=== PATIENT | female | born 1980 ===

== ENCOUNTER → 2017-07-10 | Outpatient (CLI) | payer BC ==
--- NOTE | 2017-07-10 16:18 | MR ---
EXAMINATION TYPE: MR brain/cspine wo/w DATE OF EXAM: 07/10/2017 COMPARISON: 10/08/2016 HISTORY: dis of spinal cord , migraine , MS CONTRAST: Performed utilizing 6.5 mL intravenous Gadavist gadolinium contrast. TECHNIQUE: Multiplanar, multisequence imaging of the brain is performed on a 3.0 April magnet. Demye linating disease protocol with additional Sagittal Flair sequence is performed. Study is performed wi thin 24 hours of arrival to the hospital. FINDINGS: T2 White Matter Lesions Present : No Some minimal periventricular white matter changes present more typical for white matter ischemic harrison ge. Enhancing Lesion(s) Present: No Change from Prior: Stable Diffusion-weighted imaging is performed. No abnormal hyperintensity is present to suggest an acute i ntracranial infarct or acute ischemic change. Ventricles and sulci are appropriate for the patient age. Craniovertebral junction is normal. Pituitary appears unremarkable. Corpus callosum appears unremarka ble. No abnormal enhancement is present on post contrast images. . The visualized sinuses are clear. Visu alized orbits are unremarkable. IMPRESSION: 1. No suspicious changes to suggest multiple sclerosis within the brain at this time. EXAMINATION TYPE: MR brain/cspine wo/w DATE OF EXAM: 07/10/2017 COMPARISON: 10/08/2016 HISTORY: dis of spinal cord , migraine , MS CONTRAST: Performed utilizing 6.5 mL intravenous Gadavist gadolinium contrast. TECHNIQUE: Multiplanar multiecho imaging on a 3.0 April magnet is performed through the cervical spin e. FINDINGS: The craniovertebral junction is normal. Vertebral body alignment is normal. C7-T1: No focal disc herniation or significant disc bulge is evident. No spinal canal stenosis or n eural foraminal stenosis is present. C6-7: No focal disc herniation or significant disc bulge is evident. No spinal canal stenosis or desmond ral foraminal stenosis is present. C5-6: No focal disc herniation or significant disc bulge is evident. No spinal canal stenosis or desmond ral foraminal stenosis is present. C4-5: Mild disc bulging is anterior thecal sac contact. No spinal canal stenosis or neural foraminal stenosis is present. C3-4: Central disc subligamentous herniation is present. This has mild anterior thecal sac compressio n. No cord contact is evident. No spinal canal stenosis or neural foraminal stenosis is present. C2-3: No focal disc herniation or significant disc bulge is evident. No spinal canal stenosis or desmond ral foraminal stenosis is present. There is increased signal diffusely within the posterior and left lateral spinal cord posterior to th e C2 level. This area measures approximately 0.7 cm AP by 1.9 cm in craniocaudal dimension. This was present previously but appears more extensive on the current examination. Previous linear signal post erior to the C2 level is not identified on the current exam. Remainder the spinal cord appears to hav e normal signal. No cord expansion is evident. No abnormal enhancement is evident. Previous enhanceme nt is not identified. IMPRESSIONS: 1. Proximal cervical spinal cord plaque may be present discussed above. Previous enhancement within t his region is not present. This area increased in size from prior study. Cord expansion however is no t evident. 2. Subligamentous disc herniation C3-C4.
== END | disposition home or self-care (01) ==
LOC: RADMRIMAIN 10:50
PROVIDERS: ATTEND Psychiatry & Neurology Neurology
DX: M50.21 Other cervical disc displacement, high cervical region (principal); G35 Multiple sclerosis
CPT/HCPCS: 70553; 72156; A9581

== ENCOUNTER → 2018-05-17 | Outpatient (CLI) | payer MEDICARE ==
--- NOTE | 2018-05-17 21:29 | MR ---
EXAMINATION TYPE: MR brain/cspine wo/w DATE OF EXAM: 05/17/2018 COMPARISON: MRI brain and cervical spine July 10, 2017. HISTORY: G 95.9, G43.909, and G 35 all per order. Multiple sclerosis per patient with dizziness and b ilateral extremity numbness and weakness per patient. TECHNIQUE: Multiplanar, multisequence images of the cervical spine, brain, and brainstem are all performed witho ut and with IV contrast, utilizing 6 mL intravenous Gadavist gadolinium contrast is administered intr avenously. Demyelinating disease protocol with additional Sagittal Flair sequence performed of the b rain and brainstem and PD sagittal sequence of cervical spine also acquired. FINDINGS: BRAIN: T2 Lesions Present : Yes Approximate Number of Lesions: 2 distinct lesions current study Locations Identified : Scattered Size of Reference Lesion(s): 1. 0.3 x 0.2 x 0.3 cm on axial image 20 and sagittal image 7 posterior left frontal lesion in retrosp ect likely stable 2 2 mm left parietal periventricular lesion axial image 16 and sagittal image 11 is less prominent ve rsus prior Enhancing Lesion(s) Present: No T1 Hypointense Lesion(s) Present: No Change from Prior: Likely stable in retrospect Diffusion weighted images demonstrate no evidence of a recent infarct or other diffusion abnormality. There is no worrisome extra-axial fluid collection. The ventricular system and cisternal spaces ar e normal in size and appearance. The brain volume is age appropriate. Midline structures demonstrate normal morphology. The craniocervical junction appears within normal limits. Post contrast images demonstrate no abnormal enhancement. The dural venous sinuses appear pa tent. The visualized sinuses are clear and the globes are intact. IMPRESSION: Minimal nonspecific white matter changes. No enhancing lesions are evident. C-SPINE: FINDINGS: Coronal images demonstrate dextroconvex scoliotic curvature centered in the upper thoracic spine. Sagittal images of the cervical spine show the craniocervical junction to remain within normal limits. There is redemonstration of vague area of abnormal signal posterior inferior C2 level this i s less prominent from prior exam on sagittal image 7 extending to mid C3 level sagittal image 6. No new areas of abnormal signal are clearly identified. No suspicious enhancement is present currently. The vertebral body and intravertebral disk heights are normal. No new large posterior disc herniatio ns are seen on sagittal images. Small hemangioma anterior superior C3 endplate is redemonstrated. Axial images show the C2-C3 disc space level to remain within normal limits. Axial images at C3-C4 level demonstrates central disc protrusion effacing anterior thecal sac, bilate ral neural foramina are patent. No significant change from prior. Axial images C4-C5 level redemonstrate smaller central disc protrusion mildly effacing the anterior t hecal sac there axial image 27, bilateral neural foramina are patent. No significant change from prio r. Axial images at C5-C6, C6-C7, C7-T1 levels remain within normal limits. Vague area of increased signal left posterior superior to mid C3 level and spinal cord is confirmed o n axial image 41. IMPRESSION: Persistent demyelinating plaque centered posterior C2-C3 level. It is less prominent in s ize versus prior exam. No new demyelinating plaques or suspicious enhancement is noted.
== END | disposition home or self-care (01) ==
LOC: RADMRIMAIN 13:01
PROVIDERS: ATTEND Psychiatry & Neurology Neurology
DX: R90.82 White matter disease, unspecified (principal); M53.82 Other specified dorsopathies, cervical region; G35 Multiple sclerosis; G43.909 Migraine, unspecified, not intractable, without status migrainosus
CPT/HCPCS: 70553; 72156; A9581

== ENCOUNTER → 2018-05-24 | Outpatient (CLI) | payer MEDICARE ==
--- NOTE | 2018-05-26 02:56 | MR ---
MR scan thoracic spine. History multiple sclerosis. Comparison 10/31/2016. TECHNIQUE: Multiplanar multiecho imaging of the thoracic spine was performed with and without IV contrast. The c ontrast was gadolinium 6 mm. FINDINGS: Thoracic vertebra have fairly normal spacing and alignment. There is slight thoracic dextroscoliosis. There is no compression fracture. There is no thoracic paraspinal mass. The contrast images show no pathologic enhancement. I see no thoracic disc herniation. There is no evidence of focal bony destruc tive process. There is very slight increased signal in the thoracic spinal cord at the T5 level on the T2 images. T he margins are indistinct. The remainder of the spinal cord shows normal signal pattern. IMPRESSION: 10 mm segment of thoracic cord at T5 level shows slight increased signal on T2. This is a change comp ared to old exam and is mildly suspicious for demyelinating disease.
== END ==
LOC: RADMRIMAIN 13:01
PROVIDERS: ATTEND Psychiatry & Neurology Neurology
DX: R93.8 Abnormal findings on diagnostic imaging of other specified body structures (principal); G35 Multiple sclerosis
CPT/HCPCS: 72157; A9581

== ENCOUNTER → 2019-05-02 | Outpatient (CLI) | payer MEDICARE ==
--- NOTE | 2019-05-02 21:24 | MR ---
EXAMINATION TYPE: MR thoracic spine wo/w con DATE OF EXAM: 05/02/2019 COMPARISON: Thoracic spine MRI dated 05/24/2018 HISTORY: Fatigue, MS follow up TECHNIQUE/CONTRAST: Standard multiplanar, multisequence MRI of the thoracic spine departmental protocol utilizing 6 mL in travenous Gadavist gadolinium contrast. FINDINGS: Again within the midthoracic spine at the level of approximately T6 there is a 1.3 cm abnormal plaque within the spinal cord that measures 1.3 cm, previously measuring 1.0 cm. This demonstrates no abnor mal enhancement. The thoracic spinal cord signal is otherwise unremarkable. Multilevel disc desiccation is seen without focal herniation, spinal canal stenosis, nor neural swapna inal narrowing. The thoracic bone marrow signal is within normal limits. No suspicious extra-axial fl uid collection is seen. Small Schmorl's node of the inferior thoracic vertebrae. No vertebral body he ight loss or malalignment. No abnormal enhancement throughout the thoracic spine nor thoracic spinal cord. There is adjacent atelectasis noted. IMPRESSION: Nonenhancing plaque is slightly increased in size from the prior of 05/24/2018 currently measuring 1.3 cm and previously measuring 1.0 cm. No new demyelinating plaques are seen. No new focal disc herniat ion, no abnormal enhancement of the thoracic spine or spinal cord, no new vertebral body height loss, and no malalignment of the thoracic spine.
--- NOTE | 2019-05-02 21:34 | MR ---
EXAMINATION TYPE: MR brain wo/w con DATE OF EXAM: 05/02/2019 COMPARISON: NONE HISTORY: Fatigue, MS follow up TECHNIQUE: Multiplanar, multisequence images of the brain and brainstem is performed without and with IV contras t, utilizing 6 mL intravenous Gadavist . FINDINGS: T2 Lesions Present : Yes Approximate Number of Lesions: 3 unchanged lesions Locations Identified : Deep white matter Size of Reference Lesion(s): 1. 0.3 x 0.2 x 0.3 cm on axial image 18 and in the left frontal lobe and subcortical distribution 2. Parietal periventricular 2 mm lesion axial image 17 New lesion in the left frontal lobe on sagittal image 15 measuring 1.0 x 0.2 cm. Enhancing Lesion(s) Present: No T1 Hypointense Lesion(s) Present: No Change from Prior: Solitary new lesion Diffusion weighted images demonstrate no evidence of a recent infarct or other diffusion abnormality. There is no extra-axial fluid collection. The ventricular system and cisternal spaces are normal i n size and appearance. The brain volume is age appropriate. Midline structures demonstrate normal morphology. The craniocervical junction appears within normal limits. Post contrast images demonstrate no abnormal enhancement. The dural venous sinuses appear pa tent. The visualized sinuses demonstrate mild mucosal thickening of the right maxillary sinus and sca nt mucosal thickening of the inferior ethmoid sinuses. Globes are symmetric. IMPRESSION: 1. Solitary new nonenhancing left frontal lobe white matter plaques and stable additional left cooling pan tender ior supratentorial lesions. No MR evidence of active demyelination. 2. No acute infarct, midline shift or mass effect. No abnormal intracranial enhancement.
== END ==
LOC: RADMRIMAIN 13:39
PROVIDERS: ATTEND Psychiatry & Neurology Neurology
DX: R90.89 Other abnormal findings on diagnostic imaging of central nervous system (principal); G95.89 Other specified diseases of spinal cord; G43.909 Migraine, unspecified, not intractable, without status migrainosus; R53.83 Other fatigue; G35 Multiple sclerosis
CPT/HCPCS: 70553; 72157; A9585

== ENCOUNTER → 2019-05-30 | Outpatient (CLI) | payer MEDICARE ==
--- NOTE | 2019-05-31 21:54 | MR ---
EXAMINATION TYPE: MR cervical spine wo/w con DATE OF EXAM: 05/30/2019 COMPARISON: Prior MR cervical spine 05/17/2018 HISTORY: MS TECHNIQUE: Multiplanar, multisequence images of the cervical spine were acquired utilizing 6 mL intravenous Gada vist gadolinium contrast. Diffusion weighted imaging was performed. There is no significant spinal stenosis or foraminal encroachment. 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 Increased signal within the C3 vertebral body likely represents hemangioma. Cervical s egments are intact. There is normal alignment. Cervical spinal cord is increased at the dorsal aspe ct of the cervical cord at the C2-3 level without enhancement. Craniovertebral junction relationship s are within normal limits. IMPRESSION: Mild cord signal changes are compatible with patient's history of multiple sclerosis. Stable findings .
== END | disposition home or self-care (01) ==
LOC: RADMRIMAIN 14:58
PROVIDERS: ATTEND Psychiatry & Neurology Neurology
DX: G43.909 Migraine, unspecified, not intractable, without status migrainosus (principal); G35 Multiple sclerosis; G95.9 Disease of spinal cord, unspecified; R53.83 Other fatigue
CPT/HCPCS: 72156; A9585

== ENCOUNTER → 2020-05-14 | Outpatient (CLI) | payer MEDICARE ==
--- NOTE | 2020-05-14 10:48 | MR ---
EXAMINATION TYPE: MR brain wo con DATE OF EXAM: 05/14/2020 10:32 AM COMPARISON: 1401 HISTORY: Known MS, Relapse of symptoms. Dizziness, memory lapse and forgetfulness. Multiplanar and multispin-echo imaging of the brain was performed . FINDINGS: T2 Lesions Present : Yes Approximate Number of Lesions: 3 unchanged lesions Locations Identified : Deep white matter Size of Reference Lesion(s): 1. 0.3 x 0.2 x 0.3 cm on axial image 18 and in the left frontal lobe seen previously has resolved. 2. Parietal periventricular 2 mm lesion remain stable. 3 new lesion identified left centrum semiovale periventricular location image 20 measuring 6.2 mm. Left frontal periventricular lesion as well as posterior right ventricular atrial lesion remain stabl e. Enhancing Lesion(s) Present: No T1 Hypointense Lesion(s) Present: No Change from Prior: Solitary new lesion The ventricles, basal cisterns and sulci overlying the cerebral convexities are within normal limits. There is no evidence for midline shift or mass effect. Acute intracranial hemorrhage or extra-axial collection is not evident. The brain parenchyma reveals no abnormal increased signal. No acute edema is identified. Mastoid air cells are well-aerated. Severe opacification right maxillary sinus, right ethmoid air ivone ls and right frontal sinus. IMPRESSION: 1. There is a new lesion identified within the left centrum semioval bilaterally measuring 6.2 mm. 2. Resolution of previously noted left parietal subcortical lesion.
== END | disposition home or self-care (01) ==
LOC: RADMRIMAIN 09:44
PROVIDERS: ATTEND Psychiatry & Neurology Neurology
DX: G93.89 Other specified disorders of brain (principal)
CPT/HCPCS: 70551

== ENCOUNTER → 2021-02-04 | Outpatient (CLI) | payer MEDICARE ==
--- NOTE | 2021-02-04 17:56 | MR ---
EXAMINATION TYPE: MR cspine/tspine wo/w con DATE OF EXAM: 02/04/2021 COMPARISON: 05/30/2019 and 05/02/2019 HISTORY: MS, unsteady gait, weakness. CONTRAST: Standard multiplanar, multisequence MRI departmental protocol utilizing 5.5 mL intravenous Gadavist g adolinium contrast. Cervical vertebra have normal alignment. Disc spaces are fairly normal. There is small posterior disc bulge at C3-4 and C4-5. There is no spinal stenosis. There is developmentally adequate spinal canal. Brainstem is intact. Cervical spinal cord has fairly normal signal pattern. There is no edema. Brain stem has normal signal pattern. At the T1-T2 level on the T2 images there is increased signal within the central spinal cord. There i s no evidence of a mass. There is also slight increased signal in the posterior cord at T6 level. Thi s T6 abnormality is seen only well on the axial images. There is no expansion. The contrast images sh ow no pathologic enhancement of the thoracic and cervical spine.. The thoracic vertebra show normal spacing. There is no compression fracture. There is no thoracic par aspinal mass. Is mild thoracic dextroscoliosis. IMPRESSION: There is nonenhancing increased signal in the thoracic spinal cord at T6 level probably not changed c ompared to old exam. There is evidence of new plaque formation in the upper thoracic spinal cord at T1-T2 level measuring 10 mm in length compared to old exam. The old exam of 05/30/2019 shows some increased signal in the posterior cervical cord at the C2-C3 lev el that is not well demonstrated on today's exam. This abnormality appears to be diminished.
== END | disposition home or self-care (01) ==
LOC: RADMRIMAIN 13:25
PROVIDERS: ATTEND Psychiatry & Neurology Neurology
DX: G95.9 Disease of spinal cord, unspecified (principal); G43.909 Migraine, unspecified, not intractable, without status migrainosus; G35 Multiple sclerosis
CPT/HCPCS: 72156; 72157; A9585

== ENCOUNTER → 2021-03-04 | Outpatient (CLI) | payer MEDICARE ==
--- NOTE | 2021-03-05 04:14 | MR ---
EXAMINATION TYPE: MR brain wo/w con DATE OF EXAM: 03/04/2021 COMPARISON: 05/14/2020 HISTORY: MS follow up, dizziness CONTRAST: Standard multiplanar, multisequence MRI departmental protocol utilizing 6 mL intravenous Gadavist [place] olinium contrast. Multiplanar multiecho imaging of the brain was performed without and with IV contrast. FINDINGS: Ventricles have normal size. There is no mass effect nor midline shift. There is no sign of intracran ial hemorrhage. Diffusion images show no evidence of an acute infarct. There is moderate mucosal thic kening in the right side maxillary ethmoid and frontal sinus. On the T2 and FLAIR images there is 4 m m focus of increased signal at the carlos-white matter junction left parietal lobe. The brainstem is in tact. There is no posterior fossa mass. The cerebellum appears intact. Sella turcica appears normal. There is a single 7 x 2 mm area of increased signal in the inferior aspect of the carpus callosum bod y. This is also present on old exam and not significantly different. Contrast images show no pathologic enhancement. There is normal enhancement of the venous sinuses. IMPRESSION: Single small focus of increased signal in the corpus callosum is unchanged. Single small focus in the left parietal lobe carlos-white matter junction unchanged. Moderately severe right side sinusitis as above similar to old exam.
== END | disposition home or self-care (01) ==
LOC: RADMRIMAIN 12:44
PROVIDERS: ATTEND Psychiatry & Neurology Neurology
DX: R90.82 White matter disease, unspecified (principal); J32.9 Chronic sinusitis, unspecified
CPT/HCPCS: 70553; A9585

== ENCOUNTER → 2023-06-08 | Outpatient (CLI) | payer MEDICARE ==
--- NOTE | 2023-06-09 20:50 | MR ---
EXAMINATION TYPE: MR brain/cspine wo/w DATE OF EXAM: 06/08/2023 COMPARISON: 03/04/2021 HISTORY: MS, numbness, balance issues, memory loss. F/U comparison to prior MR. CONTRAST: Performed utilizing 6 mL intravenous Gadavist gadolinium contrast. TECHNIQUE: Multiplanar, multisequence imaging of the brain is performed on a 3.0 Aprli magnet. Demye linating disease protocol with additional Sagittal Flair sequence is performed. Study is performed wi thin 24 hours of arrival to the hospital. FINDINGS: T2 White Matter Lesions Present : Yes Approximate Number of Lesions: Multiple scattered Locations Identified : Subcortical Size of Largest Lesion(s): 1. 0.6 x 0.5 x 0.6 cm. There is measuring 0.5 x 0.5 x 0.4 cm. Location: Left parietal subcortical wh ite matter Sequence 1802 Image 20 (axial) and Sequence 1801 Image 67 (sagittal). Enhancing Lesion(s) Present: No Change from Prior: Stable Diffusion-weighted imaging is performed. No abnormal hyperintensity is present to suggest an acute i ntracranial infarct or acute ischemic change. Ventricles and sulci are appropriate for the patient age. There are no abnormal extra-axial fluid collections. The ventricular system and cisternal spaces are normal in size and appearance. The brain volume is age appropriate. The craniocervical junction jaspreet ears within normal limits. The dural venous sinuses appear patent. No abnormal enhancement is present on post contrast images. . The visualized sinuses are clear. Visu alized orbits are unremarkable. IMPRESSION: 1. Subcortical white matter change left parietal lobe, present previously. EXAMINATION TYPE: MR brain/cspine wo/w DATE OF EXAM: 06/08/2023 COMPARISON: HISTORY: MS, numbness, balance issues, memory loss. F/U comparison to prior MR. CONTRAST: Performed utilizing 6 mL intravenous Gadavist gadolinium contrast. TECHNIQUE: Multiplanar multiecho imaging on a 3.0 April magnet is performed through the cervical spin e. FINDINGS: The craniovertebral junction is normal. Vertebral body alignment is normal. There are areas of increased signal within the lower cervical spine with increased signal. Posterior to the C7 level this measures 1.4 cm. At the T1-2 disc level this measures 1.0 cm. This is not well v isualized in the axial plane. No enhancement is evident. Disc levels: No focal disc herniation or significant disc bulge is evident. No spinal canal stenosis or neural foraminal stenosis is present. IMPRESSIONS: 1. Suggestion of a couple of plaques within the cervical thoracic junction within this spinal cord on the sagittal plain images. These are not well visualized on the axial plane images.
== END | disposition home or self-care (01) ==
LOC: RADMRIMAIN 14:19
PROVIDERS: ATTEND Psychiatry & Neurology Neurology
DX: G35 Multiple sclerosis (principal); R41.3 Other amnesia; R20.2 Paresthesia of skin
CPT/HCPCS: 70553; 72156; A9585

== ENCOUNTER → 2023-07-05 | Outpatient (CLI) | payer MEDICARE ==
[2023-07-05 20:08] LABS: Basophils # (A) 0.03 X 10*3/uL (0.00-0.10); Basophils % (A) 0.6 %; Eosinophils # (A) 0.18 X 10*3/uL (0.04-0.35); Eosinophils % (A) 3.6 %; HCT 42.7 % (37.2-46.3); HGB 14.3 d/dL (12.0-15.0); Lymphocytes % (A) 23.9 %; MCH 31.4 pg (27.0-32.0); MCHC 33.5 d/dL (32.0-37.0); MCV 93.6 FL (80.0-97.0); Mean Platelet Volume 9.3 FL (9.5-12.2); Monocytes # (A) 0.41 X 10*3/uL (0.20-1.00); Monocytes % (A) 8.2 %; NRBC Per 100 WBC 0 X 10*3/uL (0.00-0.01); Neutrophils # (A) 3.19 X 10*3/uL (1.80-7.70); Neutrophils % (A) 63.5 %; Platelet Count 262 X 10*3/uL (140-440); RBC 4.56 X 10*6/uL (4.10-5.20); RDW 11.8 % (11.5-14.5); WBC 5.02 X 10*3/uL (4.50-10.00)
[2023-07-05 20:18] LABS: ALT 13 U/L (8-44); AST 19 U/L (13-35); Albumin 4.6 d/dL (3.8-4.9); Alkaline Phosphatase 71 U/L (41-126); BUN/Creat Ratio 15.67 Ratio (12.00-20.00); Blood Urea Nitrogen 14.1 mg/dL (9.0-27.0); Calcium 10.1 mg/dL (8.7-10.3); Carbon Dioxide 26.5 mmol/L (21.6-31.8); Chloride 105 mmol/L (96-109); Globulin 2.3 d/dL (1.6-3.3); Glucose 89 mg/dL (70-110); Potassium 4.2 mmol/L (3.5-5.5); Sodium 144 mmol/L (135-145); T4, Free (Free Thyroxine) 1.34 ng/dL (0.80-1.80); Total Bilirubin 0.3 mg/dL (0.3-1.2); Total Protein 6.9 d/dL (6.2-8.2)
[2023-07-05 22:27] LABS: Hepatitis A Antibody IgM Nonreactive; Hepatitis B Core IgM Nonreactive; Hepatitis B Surface Antigen Nonreactive; Hepatitis C IgG Antibody Nonreactive
== END | disposition home or self-care (01) ==
LOC: LABWHC1 15:08
PROVIDERS: ATTEND Nurse Practitioner Family
DX: G35 Multiple sclerosis (principal); R53.83 Other fatigue
CPT/HCPCS: 36415; 80053; 80074; 82306; 82607; 84439; 84443; 85025; 86480

== ENCOUNTER → 2023-09-17 | Outpatient (CLI) | payer MEDICARE | END | disposition home or self-care (01) | LOC: LABWHC1 15:27 | PROVIDERS: ATTEND Psychiatry & Neurology Neurology | DX: G35 Multiple sclerosis (principal); R53.83 Other fatigue | CPT/HCPCS: 36415; 82784; 86355; 86357; 86359; 86360 ==